=== PATIENT | female | born 1975 | race African-American/Black ===

== ENCOUNTER 2016-10-12 02:34 | Emergency (ER) | payer OTHER ==
[2016-10-12 03:55] LABS: BASOPHIL % 0.4 % (0-2); PLATELET COUNT 280 x10^3mcL (130-400)
[2016-10-12 03:58] LABS: RED CELL DISTRIBUTION WIDTH 14.8 % (11.5-14.5)
[2016-10-12 04:00] LABS: CALCIUM 8.7 mg/dL (8.5-10.1); CARBON DIOXIDE 30.4 mmol/L (21-32); CHLORIDE SERUM 106 mmol/L (98-107); CREATININE SERUM 0.9 mg/dL (0.6-1.0); GFR1 > 60 mL/min; GLUCOSE SERUM 80 mg/dL (74-106); POTASSIUM SERUM 3.5 mmol/L (3.5-5.1); SODIUM SERUM 144 mmol/L (136-145)
[2016-10-12 04:05] LABS: ALBUMIN 3.4 g/dL (3.4-5.0); ALKALINE PHOSPHATASE 72 U/L (46-116); ALT/SGPT 12 U/L (14-59); AST/SGOT 11 U/L (15-37); BILIRUBIN TOTAL 0.2 mg/dL (0.20-1.00); PHOSPHOROUS 3.8 mg/dL (2.5-4.9); TOTAL PROTEIN, SERUM 7.2 g/dL (6.4-8.2); URIC ACID 3.1 mg/dL (2.6-6.0)
[2016-10-12 04:07] LABS: CHOLESTEROL 111 mg/dL (<200); HDL CHOLESTEROL 75 mg/dL (40-60)
[2016-10-12 04:52] VITALS: BP 138/91
== END 2016-10-12 04:52 | disposition home or self-care (01) ==
LOC: ED 02:34
PROVIDERS: Emergency Medicine
DX: R55 Syncope and collapse (principal)